=== PATIENT | female | born 1980 | race American Indian/Alaskan Native ===

== ENCOUNTER 2017-09-18 19:34 | Emergency (ER) | payer SELFPAY ==
[2017-09-18 21:07] LABS: Bilirubin,Urine NEG (Negative); Blood,Urine NEG (Negative); Color,Urine Yellow (Yellow); Mucus,Urine 2+ /HPF; Protein,Urine <15 mg/dL mg/dL (Negative); Urobilinogen,Urine < 2.0 mg/dL (<2.0)
[2017-09-18 21:08] LABS: Bacteria,Urine 1+ /HPF (Negative)
[2017-09-18 21:17] LABS: HCG Qualitative,Urine Negative (Negative)
--- NOTE | 2017-09-19 02:08 | Emergency Department Report ---
ED Female HPI - General Chief complaint: Urogenital-Female Stated complaint: VAGINAL DISCHARGE,HEADACHE,HIGH BLOOD PRESSURE Time Seen by Provider: 09/19/17 02:07 Source: patient Mode of arrival: Ambulatory Limitations: No Limitations - History of Present Illness Initial comments: Patient complaining of vaginal discharge and lower abdominal pain 5 days. She says she ran out of her hypertension medication and would like refill on medication. She is reported in pelvic pain at 8 out of 10 and cramping. Denies any vaginal bleeding. She has a history of uterine fibroids with blood transfusion in the past. Similar pain in the past. Reports some urinary burning and frequency but denies any urgency. Denies any back pain. Denies any nausea or vomiting. Pain is better at rest and worse with palpation and walking. When asked, patient unsure if she has STD but reports that partner does not have any symptoms. She also reports that she would like to get treated. We discussed different options. Patient does have a primary care but she wants [facility] REPA[facility] TECHNICIAN referral. MD Complaint: vaginal discharge, dysuria, pelvic pain, other (unsure of STD) Onset/Timin -: days(s) Location: suprapubic Radiation: non-radiating Severity: severe Severity scale (0 -10): 8 Quality: cramping Consistency: intermittent Improves with: other (rest) Worsens with: movement, other (palpation) Are you Now?: No Last Menstrual Period: 09/05/17 EDC: 06/12/18 Associated Symptoms: vaginal discharge, abdominal pain, dysuria. denies: vaginal bleeding, nausea/vomiting, fever/chills, headaches, loss of appetite, hematuria, rash, seizure, shortness of breath, syncope, weakness - Related Data Sexually active: Yes Previous Rx's Medication Instructions Recorded Last Taken Type Cephalexin [Keflex] 500 mg PO Q12HR 7 Days #14 cap 09/19/17 Unknown Rx Naproxen 500 mg PO Q12H PRN #12 tablet 09/19/17 Unknown Rx amLODIPine [Norvasc] 5 mg PO DAILY 30 Days #30 tablet 09/19/17 Unknown Rx MDD blood pressure Allergies Allergy/AdvReac Type Severity Reaction Status Date / Time No Known Allergies Allergy Unverified 10/25/15 20:00 ED Review of Systems ROS: Stated complaint: VAGINAL DISCHARGE,HEADACHE,HIGH BLOOD PRESSURE Other details as noted in HPI Constitutional: other (requested a refill on on Lodine for blood pressure). denies: chills, fever Eyes: denies: eye pain, eye discharge, vision change ENT: denies: throat pain Respiratory: denies: cough, shortness of breath, SOB with exertion, SOB at rest , stridor, wheezing Cardiovascular: denies: chest pain, palpitations, dyspnea on exertion, edema, syncope Gastrointestinal: abdominal pain. denies: nausea, vomiting, diarrhea, constipation, hematemesis, melena, hematochezia Genitourinary: dysuria, frequency, discharge. denies: urgency, hematuria, abnormal menses, dyspareunia Musculoskeletal: denies: back pain, joint swelling, arthralgia, myalgia Skin: denies: rash, lesions Neurological: denies: headache, weakness ED Past Medical Hx - Past Medical History Previous Medical History?: Yes Hx Hypertension: Yes Additional medical history: uterine fibroids, hx blood transfusions - Surgical History Past Surgical History?: Yes Additional Surgical History: Tonsils - Family History Family history: hypertension - Social History Smoking Status: Never Smoker Substance Use Type: None Other Social History: Single and lives with family - Medications Home Medications: Home Medications Medication Instructions Recorded Confirmed Last Taken Type Cephalexin [Keflex] 500 mg PO Q12HR 7 Days #14 cap 09/19/17 Unknown Rx Naproxen 500 mg PO Q12H PRN #12 tablet 09/19/17 Unknown Rx amLODIPine [Norvasc] 5 mg PO DAILY 30 Days #30 tablet 09/19/17 Unknown Rx MDD blood pressure ED Physical Exam - General Limitations: No Limitations General appearance: alert, in no apparent distress - Head Head exam: Present: atraumatic, normocephalic, normal inspection - Eye Eye exam: Present: normal appearance, PERRL, EOMI Pupils: Present: normal accommodation - ENT ENT exam: Present: normal exam, normal orophraynx, mucous membranes moist - Neck Neck exam: Present: normal inspection, full ROM, other (no C-spine tenderness). Absent: tenderness, lymphadenopathy - Respiratory Respiratory exam: Present: normal lung sounds bilaterally. Absent: respiratory distress, chest wall tenderness - Cardiovascular Cardiovascular Exam: Present: regular rate, normal rhythm, normal heart sounds. Absent: systolic murmur, diastolic murmur - GI/Abdominal GI/Abdominal exam: Present: soft, normal bowel sounds. Absent: distended, tenderness, guarding, rebound, rigid, organomegaly, mass, bruit, pulsatile mass , hernia - External exam: Present: normal external exam Speculum exam: Present: cervical discharge. Absent: erythema, vaginal discharge , vaginal bleeding, foreign body, tissue, laceration Bi-manual exam: Present: normal bi-manual exam. Absent: cervical motion tendernes, adnexal tenderness, adnexal mass, uterine enlargement, uterine tenderness - Extremities Exam Extremities exam: Present: normal inspection, full ROM, normal capillary refill , other (no clubbing, cyanosis or edema. +2 pulses all extremities and no neurovascular compromise). Absent: tenderness, pedal edema, joint swelling, calf tenderness - Back Exam Back exam: Present: normal inspection, full ROM, other (ambulates without any difficulties). Absent: tenderness, CVA tenderness (R), CVA tenderness (L), muscle spasm, paraspinal tenderness, vertebral tenderness, rash noted - Neurological Exam Neurological exam: Present: alert, oriented X3, normal gait - Psychiatric Psychiatric exam: Present: normal affect, normal mood - Skin Skin exam: Present: warm, dry, intact, normal color. Absent: rash ED Course Vital Signs 09/18/17 09/19/17 19:52 03:16 Temperature 97.8 F Pulse Rate 96 H 76 Respiratory 20 18 Rate Blood Pressure 151/97 Blood Pressure 151/91 148/89 [Right] O2 Sat by Pulse 100 100 Oximetry - Reevaluation(s) Reevaluation #1: 09/19/17 04:51 Patient given Rocephin 1 g IM to treat urinary tract infection and empirically for gonorrhea that she complain of vaginal discharge and returns for STD. He was also given azithromycin 1 g by mouth in emergency room without any adverse reaction. ED Medical Decision Making - Lab Data Lab Results 09/18/17 Range/Units 20:46 Urine Color Yellow (Yellow) Urine Turbidity Clear (Clear) Urine pH 5.0 (5.0-7.0) Ur Specific [place] 1.026 (1.003-1.030) Urine Protein <15 mg/dl (Negative) mg/dL Urine Glucose (UA) Neg (Negative) mg/dL Urine Ketones Neg (Negative) mg/dL Urine Blood Neg (Negative) Urine Nitrite Neg (Negative) Urine Bilirubin Neg (Negative) Urine Urobilinogen < 2.0 (<2.0) mg/dL Ur Leukocyte Esterase Sm (Negative) Urine WBC (Auto) 6.0 (0.0-6.0) /HPF Urine RBC (Auto) 6.0 (0.0-6.0) /HPF U Epithel Cells (Auto) 8.0 (0-13.0) /HPF Urine Bacteria (Auto) 1+ (Negative) /HPF Urine Mucus 2+ /HPF Urine HCG, Qual Negative (Negative) Urine culture sent and pending Wet prep was negative to cells, negative Trichomonas and negative yeast Gonorrhea and chlamydia pending - Medical Decision Making ED course: Diagnosis 1: Abdominal pain-resolved. Will be discharged home on anti-inflammatory 2-vaginal discharge :patient treated empirically and emergency room for gonorrhea and chlamydia. Specimen collected and sent. Wet prep negative for Trichomonas, yeast and bacterial vaginosis. Pelvic exam with vaginal discharge but cervix looks normal without any CMT 3: Urinary tract infection: UA with leukocyte Estrace and bacteria with patient complaining of urinary burning in with frequency. Patient given Rocephin 1 g which cover gonorrhea and also urinary tract infection and will be discharged home on Keflex. Urine culture collected and sent 4: Hypertension and request then medication refill for amlodipine: Will refill amlodipine and I discussed patient she needs to go to her primary care physician for management of her chronic hypertension Educated on safe sex, STDs and other diagnosis. Patient referred to [facility]PA[facility] TECHNICIAN to get Pap smear and she has not had one in a while. Educated to tell her partner that she had vaginal discharge and she was treated for gonorrhea and chlamydia and that they will need to be checked for STD Educated on medication and diagnosis and she voiced understanding. Vital signs are stable and she is afebrile prior to discharge. Patient given results on wet prep, urinalysis and I discussed with her that gonorrhea and chlamydia test is pending will be back and if she does not get a call within 5 days she can come to medical records department to get results and to bring her ID. Multiple follow-up given for primary care, taking [facility] and 3 m [facility] REPAIR TECHNIC[facility] doctor Maria Dolores Bolivar. Patient voiced understanding of need to follow-up. Patient discharged home in stable condition from emergency room with prescription for amlodipine, Keflex and naproxen. - Differential Diagnosis PID, , acute cystitis, STDs Critical care attestation.: If time is entered above; I have spent that time in minutes in the direct care of this critically ill patient, excluding procedure time. ED Disposition Clinical Impression: Concern about STD in female without diagnosis, Acute cystitis without hematuria , Vaginal discharge Abdominal pain Qualifiers: Abdominal location: lower abdomen, unspecified Qualified Code(s): R10.30 - Lower abdominal pain, unspecified Disposition: TO HOME OR SELFCARE Is pt being admited?: No Does the pt Need Aspirin: No Condition: Stable Instructions: Safe Sex (ED), Sexually Transmitted Diseases (ED), Dysuria (ED), Urinary Tract Infection in Women (ED), Heart Healthy Diet (ED), Hypertension (ED ) Additional Instructions: Please follow up with [facility] REPAIR TECHNICIAN doctor Daniel at [facility]. See referral given call and she is to schedule an appointment for visit for pelvic exam to include Pap smear. You were treated in emergency room today for gonorrhea and chlamydia and will need to follow-up with BICYCLE REPAIR TECHNICIAN or health department in 7-10 days for repeat testing. You can come to the medical record department and request results in 5 days for gonorrhea and chlamydia tests and if it is negative that he won't need to get rechecked You're also treated for urinary tract infection and will be placed on antibiotic which she needs to take twice daily for 7 days. He is practice safe sex. Urine negative for bacterial vaginosis, yeast infection and Trichomonas and ED today. Follow-up with your primary care is discussed he can also get repeat STD testing here. Need to Prescriptions: amLODIPine [Norvasc] 5 mg PO DAILY 30 Days #30 tablet MDD blood pressure Cephalexin [Keflex] 500 mg PO Q12HR 7 Days #14 cap Naproxen 500 mg PO Q12H PRN #12 tablet PRN Reason: abdominal cramps Referrals: PRIMARY MD PIPPA [Primary Care Provider] - 2-3 Days [facility] [Outside] - 2-3 Days JENNIFER AGUDELO MD [Staff Physician] - 2-3 Days [facility] [Outside] - 7-10 days Forms: Work/School Release Form(ED)
[2017-09-19] MEDS ORDERED: ROCEPHIN IM STA (02:37)
[2017-09-19] MEDS ORDERED: ZITHROMAX PO ONE (02:38)
[2017-09-19] MEDS ORDERED: XYLOCAINE 1% MPF 5 mL INFILTRATI ONE (02:38)
[2017-09-19 03:17] VITALS: BP 148/89
== END 2017-09-19 05:15 | disposition home or self-care (01) ==
LOC: ED 19:34
DX: N30.00 Acute cystitis without hematuria (principal); Z20.2 Contact with and (suspected) exposure to infections with a predominantly sexual mode of transmission; I10 Essential (primary) hypertension
CPT/HCPCS: 81001; 81025; 87086; 87210; 87591; 96372; 99283; J0696

== ENCOUNTER 2017-12-04 19:11 | Emergency (ER) | payer SELFPAY ==
[2017-12-04 23:58] LABS: Bilirubin,Urine NEG (Negative); Blood,Urine NEG (Negative); Color,Urine Yellow (Yellow); Mucus,Urine 1+ /HPF; Protein,Urine <15 mg/dL mg/dL (Negative); Urobilinogen,Urine < 2.0 mg/dL (<2.0)
[2017-12-05 00:01] LABS: HCG Qualitative,Urine Negative (Negative)
--- NOTE | 2017-12-05 00:19 | Emergency Department Report ---
ED Female HPI - General Chief complaint: Urogenital-Female Stated complaint: DISCHARGE/PAIN Time Seen by Provider: 12/05/17 00:12 Source: patient Mode of arrival: Ambulatory Limitations: No Limitations - History of Present Illness Initial comments: Patient 37-year-old Afro-[place] female who presents with dysuria 1 week other symptoms including frequency urgency . No vaginal discharge no back pain nausea vomiting last menstrual period MD Complaint: dysuria Onset/Timin -: week(s) Severity: moderate Severity scale (0 -10): 4 Quality: burning, other (stinging) Consistency: intermittent Improves with: none Worsens with: urination Are you Now?: No Last Menstrual Period: 11/28/17 EDC: 09/04/18 Associated Symptoms: dysuria. denies: vaginal discharge, vaginal bleeding, abdominal pain, nausea/vomiting, fever/chills, headaches, loss of appetite, hematuria, rash, shortness of breath, syncope, weakness - Related Data Sexually active: Yes Previous Rx's Medication Instructions Recorded Last Taken Type Cephalexin [Keflex] 500 mg PO Q12HR 7 Days #14 cap 09/19/17 Unknown Rx Naproxen 500 mg PO Q12H PRN #12 tablet 09/19/17 Unknown Rx amLODIPine [Norvasc] 5 mg PO DAILY 30 Days #30 tablet 09/19/17 Unknown Rx MDD blood pressure Ibuprofen 800 mg PO TID PRN #30 tablet 12/05/17 Unknown Rx Nitrofurantoin Monohyd/M-Cryst 100 mg PO BID #14 capsule 12/05/17 Unknown Rx [Macrobid 100 mg Capsule] Allergies Allergy/AdvReac Type Severity Reaction Status Date / Time No Known Allergies Allergy Unverified 10/25/15 20:00 ED Review of Systems ROS: Stated complaint: DISCHARGE/PAIN Other details as noted in HPI Constitutional: denies: chills, fever Eyes: denies: eye pain, eye discharge, vision change ENT: denies: ear pain, throat pain Respiratory: denies: cough, shortness of breath, wheezing Cardiovascular: denies: chest pain, palpitations Endocrine: no symptoms reported Gastrointestinal: denies: abdominal pain, nausea, diarrhea Genitourinary: urgency, dysuria, frequency, hematuria. denies: discharge Musculoskeletal: denies: back pain, joint swelling, arthralgia Skin: denies: rash, lesions Neurological: denies: headache, weakness, paresthesias Psychiatric: denies: anxiety, depression Hematological/Lymphatic: denies: easy bleeding, easy bruising ED Past Medical Hx - Past Medical History Previous Medical History?: Yes Hx Hypertension: Yes Additional medical history: uterine fibroids, hx blood transfusions - Surgical History Past Surgical History?: Yes Additional Surgical History: Tonsils - Social History Smoking Status: Never Smoker Substance Use Type: None - Medications Home Medications: Home Medications Medication Instructions Recorded Confirmed Last Taken Type Cephalexin [Keflex] 500 mg PO Q12HR 7 Days #14 cap 09/19/17 Unknown Rx Naproxen 500 mg PO Q12H PRN #12 tablet 09/19/17 Unknown Rx amLODIPine [Norvasc] 5 mg PO DAILY 30 Days #30 tablet 09/19/17 Unknown Rx MDD blood pressure Ibuprofen 800 mg PO TID PRN #30 tablet 12/05/17 Unknown Rx Nitrofurantoin Monohyd/M-Cryst 100 mg PO BID #14 capsule 12/05/17 Unknown Rx [Macrobid 100 mg Capsule] ED Physical Exam - General Limitations: No Limitations General appearance: alert, in no apparent distress - Head Head exam: Present: atraumatic, normocephalic - Eye Eye exam: Present: normal appearance - ENT ENT exam: Present: mucous membranes moist - Neck Neck exam: Present: normal inspection - Respiratory Respiratory exam: Present: normal lung sounds bilaterally. Absent: respiratory distress - Cardiovascular Cardiovascular Exam: Present: regular rate, normal rhythm. Absent: systolic murmur, diastolic murmur, rubs, gallop - GI/Abdominal GI/Abdominal exam: Present: soft, normal bowel sounds. Absent: distended, tenderness, guarding, rebound, rigid, organomegaly, mass, bruit, pulsatile mass , hernia - Rectal Rectal exam: Present: deferred - Extremities Exam Extremities exam: Present: normal inspection - Back Exam Back exam: Present: normal inspection, full ROM. Absent: tenderness, CVA tenderness (R), CVA tenderness (L), muscle spasm, paraspinal tenderness, vertebral tenderness, rash noted - Neurological Exam Neurological exam: Present: alert, oriented X3, CN II-XII intact, normal gait, reflexes normal. Absent: motor sensory deficit - Psychiatric Psychiatric exam: Present: normal affect, normal mood - Skin Skin exam: Present: warm, dry, intact, normal color. Absent: rash ED Course Vital Signs 12/04/17 19:38 Temperature 99.5 F Pulse Rate 88 Respiratory 18 Rate Blood Pressure 146/92 O2 Sat by Pulse 100 Oximetry ED Medical Decision Making - Lab Data Laboratory Tests 12/04/17 Unknown Urine Color Yellow Urine Turbidity Clear Urine pH 6.0 Ur Specific [place] 1.019 Urine Protein <15 mg/dl Urine Glucose (UA) Neg Urine Ketones Neg Urine Blood Neg Urine Nitrite Neg Urine Bilirubin Neg Urine Urobilinogen < 2.0 Ur Leukocyte Esterase Mod Urine WBC (Auto) 6.0 Urine RBC (Auto) 6.0 U Epithel Cells (Auto) 4.0 Urine Mucus 1+ Urine HCG, Qual Negative - Medical Decision Making this is a UTI, UA: mod luek, wbc, rbc, hcg: neg, given a vaginal discharge no sexual activity no back pain and nausea vomiting no CVA tenderness no hematuria which U Macrobid by mouth 7 days patient will follow up with PCP in 2 -3 days patient verbalizes agreement and understanding was able be DC'd home stable condition at this time Critical care attestation.: If time is entered above; I have spent that time in minutes in the direct care of this critically ill patient, excluding procedure time. ED Disposition Clinical Impression: UTI (urinary tract infection) Qualifiers: Urinary tract infection type: acute cystitis Hematuria presence: without hematuria Qualified Code(s): N30.00 - Acute cystitis without hematuria Disposition: DC-01 TO HOME OR SELFCARE Is pt being admited?: No Does the pt Need Aspirin: No Condition: Good Instructions: Urinary Tract Infection in Women (ED) Prescriptions: Ibuprofen 800 mg PO TID PRN #30 tablet PRN Reason: pain Nitrofurantoin Monohyd/M-Cryst [Macrobid 100 mg Capsule] 100 mg PO BID #14 capsule Referrals: PRIMARY CARE, [Primary Care Provider] - 3-5 Days Forms: Work/School Release Form(ED) Time of Disposition: 00:21
[2017-12-05 00:49] VITALS: BP 140/90
== END 2017-12-05 00:49 | disposition home or self-care (01) ==
LOC: ED 19:11
DX: N30.00 Acute cystitis without hematuria (principal); I10 Essential (primary) hypertension; Z90.89 Acquired absence of other organs
CPT/HCPCS: 81001; 81025; 87086; 99283

== ENCOUNTER 2018-01-13 13:12 | Emergency (ER) | payer OTHER ==
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
--- NOTE | 2018-01-13 15:08 | XRay Report ---
LUMBOSACRAL SPINE, 3 VIEWS: History: Back pain Findings: The vertebral bodies, disk spaces and posterior elements are intact. No compression deformity or malalignment. The SI joints are symmetric and unremarkable. Impression: 1. No evidence for acute injury to the lumbar spine.
--- NOTE | 2018-01-13 15:09 | XRay Report ---
CERVICAL SPINE, 3 views: History: Neck pain. Findings: The vertebral bodies, disk spaces, posterior elements and prevertebral soft tissues are unremarkable. The dens is intact. No acute fracture or malalignment is identified. Impression: 1. No evidence for acute injury to the cervical spine.
[2018-01-13 15:33] VITALS: BP 171/95
== END 2018-01-13 15:34 | disposition home or self-care (01) ==
LOC: ED 13:12
DX: M54.2 Cervicalgia (principal); M54.9 Dorsalgia, unspecified; V49.59XA Passenger injured in collision with other motor vehicles in traffic accident, initial encounter; X58.XXXA Exposure to other specified factors, initial encounter; Y93.89 Activity, other specified; Y92.89 Other specified places as the place of occurrence of the external cause; Y99.8 Other external cause status; I10 Essential (primary) hypertension
CPT/HCPCS: 72040; 72100

== ENCOUNTER 2018-08-06 08:14 | Emergency (ER) | payer OTHER ==
[2018-08-06] MEDS ORDERED: ROBITUSSIN PO ONE (10:05)
--- NOTE | 2018-08-06 10:10 | Emergency Department Report ---
ED ENT HPI - General Chief complaint: Sore Throat Stated complaint: COLD/SORE THROAT Time Seen by Provider: 08/06/18 09:40 Source: patient Mode of arrival: Ambulatory Limitations: No Limitations - History of Present Illness Initial comments: This is a 38-year-old female who presents to ED complaining of 5 days worth of sore throat and cough.. 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 Patient denies fever, difficulty breathing, difficulty eating or swallowing. Patient st ates she's been taking [id number] Tylenol and NyQuil with no relief. MD complaint: sore throat - Related Data Previous Rx's Medication Instructions Recorded Last Taken Type Naproxen 500 mg PO Q12H PRN #12 tablet 09/19/17 Unknown Rx cephALEXin [Keflex] 500 mg PO Q12HR 7 Days #14 cap 09/19/17 Unknown Rx Nitrofurantoin Monohyd/M-Cryst 100 mg PO BID #14 capsule 12/05/17 Unknown Rx [Macrobid 100 mg Capsule] Cyclobenzaprine [Flexeril] 10 mg PO TID PRN #20 tablet 01/13/18 Unknown Rx Naproxen [Naprosyn] 500 mg PO BID #14 tablet 01/13/18 Unknown Rx Benzonatate [Tessalon Perles] 100 mg PO Q8HR #30 capsule 08/06/18 Unknown Rx Ibuprofen 800 mg PO TID PRN #30 tablet 08/06/18 Unknown Rx Loratadine [Claritin] 10 mg PO DAILY #30 tablet 08/06/18 Unknown Rx amLODIPine [Norvasc] 5 mg PO DAILY 30 Days #30 tablet 08/06/18 Unknown Rx MDD blood pressure Allergies Allergy/AdvReac Type Severity Reaction Status Date / Time No Known Allergies Allergy Verified 08/06/18 08:17 ED Dental HPI - General Chief complaint: Sore Throat Stated complaint: COLD/SORE THROAT Time Seen by Provider: 08/06/18 09:40 Source: patient Mode of arrival: Ambulatory Limitations: No Limitations - Related Data Previous Rx's Medication Instructions Recorded Last Taken Type Naproxen 500 mg PO Q12H PRN #12 tablet 09/19/17 Unknown Rx cephALEXin [Keflex] 500 mg PO Q12HR 7 Days #14 cap 09/19/17 Unknown Rx Nitrofurantoin Monohyd/M-Cryst 100 mg PO BID #14 capsule 12/05/17 Unknown Rx [Macrobid 100 mg Capsule] Cyclobenzaprine [Flexeril] 10 mg PO TID PRN #20 tablet 01/13/18 Unknown Rx Naproxen [Naprosyn] 500 mg PO BID #14 tablet 01/13/18 Unknown Rx Benzonatate [Tessalon Perles] 100 mg PO Q8HR #30 capsule 08/06/18 Unknown Rx Ibuprofen 800 mg PO TID PRN #30 tablet 08/06/18 Unknown Rx Loratadine [Claritin] 10 mg PO DAILY #30 tablet 08/06/18 Unknown Rx amLODIPine [Norvasc] 5 mg PO DAILY 30 Days #30 tablet 08/06/18 Unknown Rx MDD blood pressure Allergies Allergy/AdvReac Type Severity Reaction Status Date / Time No Known Allergies Allergy Verified 08/06/18 08:17 ED Review of Systems ROS: Stated complaint: COLD/SORE THROAT Other details as noted in HPI Comment: All other systems reviewed and negative ED Past Medical Hx - Past Medical History Hx Hypertension: Yes Additional medical history: uterine fibroids, hx blood transfusions - Surgical History Additional Surgical History: Tonsils - Social History Smoking Status: Never Smoker Substance Use Type: None - Medications Home Medications: Home Medications Medication Instructions Recorded Confirmed Last Taken Type Naproxen 500 mg PO Q12H PRN #12 tablet 09/19/17 Unknown Rx cephALEXin [Keflex] 500 mg PO Q12HR 7 Days #14 cap 09/19/17 Unknown Rx Nitrofurantoin Monohyd/M-Cryst 100 mg PO BID #14 capsule 12/05/17 Unknown Rx [Macrobid 100 mg Capsule] Cyclobenzaprine [Flexeril] 10 mg PO TID PRN #20 tablet 01/13/18 Unknown Rx Naproxen [Naprosyn] 500 mg PO BID #14 tablet 01/13/18 Unknown Rx Benzonatate [Tessalon Perles] 100 mg PO Q8HR #30 capsule 08/06/18 Unknown Rx Ibuprofen 800 mg PO TID PRN #30 tablet 08/06/18 Unknown Rx Loratadine [Claritin] 10 mg PO DAILY #30 tablet 08/06/18 Unknown Rx amLODIPine [Norvasc] 5 mg PO DAILY 30 Days #30 tablet 08/06/18 Unknown Rx MDD blood pressure ED Physical Exam - General Limitations: No Limitations General appearance: alert, in no apparent distress - Head Head exam: Present: atraumatic, normocephalic - Eye Eye exam: Present: normal appearance - ENT ENT exam: Present: mucous membranes moist - Neck Neck exam: Present: normal inspection, full ROM. Absent: tenderness, lymphadenopathy - Respiratory Respiratory exam: Present: normal lung sounds bilaterally. Absent: respiratory distress, wheezes, rales, chest wall tenderness, accessory muscle use - Cardiovascular Cardiovascular Exam: Present: regular rate, normal rhythm. Absent: systolic murmur, diastolic murmur, rubs, gallop - GI/Abdominal GI/Abdominal exam: Present: soft, normal bowel sounds - Extremities Exam Extremities exam: Present: normal inspection - Back Exam Back exam: Present: normal inspection - Neurological Exam Neurological exam: Present: alert, oriented X3 - Psychiatric Psychiatric exam: Present: normal affect, normal mood - Skin Skin exam: Present: warm, dry, intact, normal color. Absent: rash ED Course Vital Signs 08/06/18 08:19 Temperature 98.5 F Pulse Rate 94 H Respiratory 18 Rate Blood Pressure 173/107 O2 Sat by Pulse 100 Oximetry ED Medical Decision Making - Medical Decision Making 38-year-old female presents with viral syndrome. Patient does say she is concerned about her blood pressure but she states that she is to be on amlodipine. Amlodipine 10 mg administered in the ED Patient is speaking in clear sentences. Patient will likely a referral primary care physician to continue blood pressure management. Final signs are normal patient is in no acute distress. Critical care attestation.: If time is entered above; I have spent that time in minutes in the direct care of this critically ill patient, excluding procedure time. ED Disposition Clinical Impression: Viral syndrome, Hypertension Disposition: DC-01 TO HOME OR SELFCARE Is pt being admited?: No Does the pt Need Aspirin: No Condition: Stable Instructions: Hypertension (ED), Cold Symptoms (ED) Additional Instructions: Make sure to follow up with the primary care physician as discussed. Take all your medications as you've been prescribed. If you have any worsening symptoms or develop new symptoms please return to ED immediately. Prescriptions: Loratadine [Claritin] 10 mg PO DAILY #30 tablet Ibuprofen 800 mg PO TID PRN #30 tablet PRN Reason: pain amLODIPine [Norvasc] 5 mg PO DAILY 30 Days #30 tablet MDD blood pressure Benzonatate [Tessalon Perllina] 100 mg PO Q8HR #30 capsule Referrals: LUCIANA REIS MD [Referring] - 3-5 Days [facility] [Provider Group] - 3-5 Days [facility] [Outside] - 3-5 Days Forms: Work/School Release Form(ED) Time of Disposition: 10:47
[2018-08-06] MEDS ORDERED: NORVASC PO ONE (10:49)
[2018-08-06 10:55] VITALS: BP 163/98
== END 2018-08-06 11:05 | disposition home or self-care (01) ==
LOC: ED 08:14
DX: B34.9 Viral infection, unspecified (principal); I10 Essential (primary) hypertension; J02.9 Acute pharyngitis, unspecified
CPT/HCPCS: 99282

== ENCOUNTER 2018-08-12 12:06 | Emergency (ER) | payer OTHER ==
[2018-08-12 13:14] VITALS: BP 152/95
--- NOTE | 2018-08-12 15:08 | XRay Report ---
XRAY CHEST TWO VIEWS: 08/12/18 12:06:00 CLINICAL: Productive cough. COMPARISON: None FINDINGS: Normal heart and pulmonary vasculature. The lungs are normally expanded and clear.Dextroscoliosis but otherwise normal bones. The soft tissues. IMPRESSION: No acute cardiopulmonary process.
--- NOTE | 2018-08-12 15:19 | Emergency Department Report ---
ED Medical Clearance HPI - General Chief complaint: Medical Clearance Stated complaint: COLD AND LESION Time Seen by Provider: 08/12/18 15:16 Source: patient Mode of arrival: Ambulatory - History of Present Illness Initial comments: Pt is a 38 yo female who presents to the ED with c/o medical clearance for her job. The patient states she was diagnosed with chicken pox and states that the rash has resolved. The patient states it crusted over and has not had any further blistering. The patient states that she has had a cough for about 10 days. states she has mucus production. States she has rhinorrhea. She denies any CP or SOB. She states she has a PMHx of HTN and states she is on amlodipine. Pt was evaluated in the ED with these c/o and was diagnosed with viral syndrome and given claritin and tessalon perles. Home medications: Previous Rx's Medication Instructions Recorded Last Taken Type Naproxen 500 mg PO Q12H PRN #12 tablet 09/19/17 Unknown Rx Naproxen [Naprosyn TAB] 500 mg PO BID #14 tablet 01/13/18 Unknown Rx Benzonatate [Tessalon Perles] 100 mg PO Q8HR #30 capsule 08/06/18 Unknown Rx Loratadine [Claritin] 10 mg PO DAILY #30 tablet 08/06/18 Unknown Rx amLODIPine [Norvasc] 5 mg PO DAILY 30 Days #30 tablet 08/06/18 Unknown Rx MDD blood pressure Fluticasone [Flonase] 1 spray NS QDAY #1 bottle 08/12/18 Unknown Rx Prednisone [predniSONE 10 mg 10 mg PO .TAPER 6 Days #1 tab.ds.pk 08/12/18 Unknown Rx (6-Day Pack, 21 Tabs)] Allergies/Adverse reactions: Allergies Allergy/AdvReac Type Severity Reaction Status Date / Time No Known Allergies Allergy Verified 08/06/18 08:17 ED Review of Systems ROS: Stated complaint: COLD AND LESION Other details as noted in HPI Comment: All other systems reviewed and negative ED Past Medical Hx - Past Medical History Previous Medical History?: Yes Hx Hypertension: Yes Additional medical history: uterine fibroids, hx blood transfusions - Surgical History Past Surgical History?: Yes Additional Surgical History: Tonsils - Social History Smoking Status: Never Smoker Substance Use Type: None - Medications Home Medications: Home Medications Medication Instructions Recorded Confirmed Last Taken Type Naproxen 500 mg PO Q12H PRN #12 tablet 09/19/17 Unknown Rx Naproxen [Naprosyn TAB] 500 mg PO BID #14 tablet 01/13/18 Unknown Rx Benzonatate [Tessalon Perles] 100 mg PO Q8HR #30 capsule 08/06/18 Unknown Rx Loratadine [Claritin] 10 mg PO DAILY #30 tablet 08/06/18 Unknown Rx amLODIPine [Norvasc] 5 mg PO DAILY 30 Days #30 tablet 08/06/18 Unknown Rx MDD blood pressure Fluticasone [Flonase] 1 spray NS QDAY #1 bottle 08/12/18 Unknown Rx Prednisone [predniSONE 10 mg 10 mg PO .TAPER 6 Days #1 tab.ds.pk 08/12/18 Unknown Rx (6-Day Pack, 21 Tabs)] ED Physical Exam - General Limitations: No Limitations General appearance: alert, in no apparent distress - Head Head exam: Present: atraumatic, normocephalic - Eye Eye exam: Present: normal appearance - ENT ENT exam: Present: normal orophraynx, mucous membranes moist - Respiratory Respiratory exam: Present: normal lung sounds bilaterally. Absent: respiratory distress, wheezes, rales, rhonchi, stridor, chest wall tenderness, accessory muscle use, decreased breath sounds, prolonged expiratory - Cardiovascular Cardiovascular Exam: Present: regular rate, normal rhythm, normal heart sounds. Absent: systolic murmur, diastolic murmur, rubs, gallop - Neurological Exam Neurological exam: Present: alert, oriented X3 - Psychiatric Psychiatric exam: Present: normal affect, normal mood - Skin Skin exam: Present: warm, dry, other (patient has healed, crusted over lesions on the face and rest of the body ) ED Course Vital Signs 08/12/18 13:12 Temperature 98.2 F Pulse Rate 89 Respiratory 18 Rate Blood Pressure 152/95 O2 Sat by Pulse 100 Oximetry ED Medical Decision Making - Radiology Data Radiology results: report reviewed XRAY CHEST TWO VIEWS: 08/12/18 12:06:00 CLINICAL: Productive cough. COMPARISON: None FINDINGS: Normal heart and pulmonary vasculature. The lungs are normally expanded and clear.Dextroscoliosis but otherwise normal bones. The soft tissues. IMPRESSION: No acute cardiopulmonary process. Transcribed By: REF Dictated By: IRA RAZO MD Electronically Authenticated By: IRA RAZO MD Signed Date/Time: 08/12/18 2685 - Medical Decision Making Pt is a 38 yo female who presents to the ED with c/o medical clearance for her job. The patient states she was diagnosed with chicken pox and states that the rash has resolved. The patient states it crusted over and has not had any further blistering. The patient states that she has had a cough for about 10 days. states she has mucus production. States she has rhinorrhea. She denies any CP or SOB. She states she has a PMHx of HTN and states she is on amlodipine. Pt was evaluated in the ED with these c/o and was diagnosed with viral syndrome and given claritin and tessalon perles. VSS. lung sounds are clear bilaterally. CXR with no acute process. Appears to have allergic rhinitis on examination, will give pt flonase. Skin examination shows healed, crusted over lesions from prior chicken pox. Advised pt that we could give her a return to work excuse but could not give her a form stating that she was not contagious. Discussed with pt she would need to see a PCP for that complaint. Advised pt to take all medication as prescribed. Follow up with PCP in the next 2-3 days. Return to the ED for any new or worsening symptoms. ED Disposition Clinical Impression: Viral syndrome Hypertension Qualifiers: Hypertension type: essential hypertension Qualified Code(s): I10 - Essential (primary) hypertension Chicken pox Qualifiers: Varicella complications: without complication Qualified Code(s): B01.9 - Varicella without complication Disposition: DC- TO HOME OR SELFCARE Is pt being admited?: No Does the pt Need Aspirin: No Condition: Stable Instructions: Upper Respiratory Infection (ED), Hypertension (ED) Additional Instructions: Please follow up with a primary care doctor in the next 2-3 days. please discuss with your doctor the elevation in your blood pressure and further blood pressure evaluation and management. Please take medication as prescribed. Return to the emergency room for any new or worsening symptoms. Prescriptions: Fluticasone [Flonase] 1 spray NS QDAY #1 bottle Prednisone [predniSONE 10 mg (6-Day Pack, 21 Tabs)] 10 mg PO .TAPER 6 Days #1 tab.ds.pk Referrals: KIA CR MD [Primary Care Provider] - 2-3 Days Forms: Work/School Release Form(ED) Time of Disposition: 15:25 Print Language: VINCENTIAN
== END 2018-08-12 15:40 | disposition home or self-care (01) ==
LOC: ED 12:06
DX: B34.9 Viral infection, unspecified (principal); B01.9 Varicella without complication; I10 Essential (primary) hypertension; D64.9 Anemia, unspecified; Z90.89 Acquired absence of other organs
CPT/HCPCS: 71046

== ENCOUNTER 2021-11-16 07:38 | Emergency (ER) | payer SELFPAY ==
[2021-11-16] MEDS ORDERED: METOCLOPRAMIDE 10 MG/2 ML INJ IV ONE (08:39)
[2021-11-16] MEDS ORDERED: diphenhydrAMINE 50 MG/ML VIAL IV ONE (08:39)
[2021-11-16] MEDS ORDERED: hydrALAZINE 20 MG/1 ML INJ IV ONE (08:39)
[2021-11-16] MEDS ORDERED: diphenhydrAMINE 25 MG/10 ML ORAL LIQUID PO ONE (09:31)
[2021-11-16] MEDS ORDERED: METOCLOPRAMIDE 10 MG TAB PO ONE (09:31)
[2021-11-16] MEDS ORDERED: cloNIDine 0.2 MG TAB PO ONE (09:31)
[2021-11-16 09:34] LABS: Basophils % (Auto) 0.6 % (0.0-1.8); Eosinophils # (Auto) 0.1 K/mm3 (0.0-0.4); Eosinophils % (Auto) 2.3 % (0.0-4.3); Hematocrit 42.4 % (30.3-42.9); Hemoglobin 14.1 gm/dl (10.1-14.3); Lymphocytes # (Auto) 1.1 K/mm3 (1.2-5.4); Lymphocytes % (Auto) 26.8 % (13.4-35.0); Mean Corpuscular HGB Conc 33 % (30-34); Mean Corpuscular Volume 85 fl (79-97); Monocytes # (Auto) 0.3 K/mm3 (0.0-0.8); Monocytes % (Auto) 6.8 % (0.0-7.3); Platelet Count 141 K/mm3 (140-440); Red Blood Count 5.01 M/mm3 (3.65-5.03); Red Cell Distribution Width 14.7 % (13.2-15.2)
[2021-11-16 10:03] LABS: Alanine Aminotransferase 23 units/L (7-56); Albumin 4.5 g/dL (3.9-5); Blood Urea Nitrogen 10 mg/dL (7-17); Calcium 9.5 mg/dL (8.4-10.2); Hemolysis Index 8
[2021-11-16 10:05] LABS: BUN/Creatinine Ratio 20
--- NOTE | 2021-11-16 10:14 | Cat Scan Report ---
NONENHANCED CT SCAN OF THE HEAD: INDICATION / CLINICAL INFORMATION: 41 years Female; headache with HTN. TECHNIQUE: Routine CT head without contrast. All CT scans at this location are performed using CT dos e reduction for ALARA by means of automated exposure control. COMPARISON: None. FINDINGS: BRAIN / INTRACRANIAL CONTENTS: No acute hemorrhage, mass effect, midline shift, hydrocephalus, or acu te, large territorial infarct. No chronic infarct or focal atrophy. Normal brain volume and ventricul ar/sulcal size for age. No significant white matter abnormality. CRANIOCERVICAL JUNCTION: No significant abnormality. ORBITS: No significant abnormality of visualized orbits. SINUSES / MASTOIDS: No significant abnormality of the visualized paranasal sinuses or mastoid air lynda ls. ADDITIONAL FINDINGS: None. IMPRESSION: No focal parenchymal lesion Signer Name: Marcela Pritchett MD Signed: 11/16/2021 10:09 AM Workstation Name: [employer]
[2021-11-16 10:41] VITALS: BP 148/96
--- NOTE | 2021-11-16 10:53 | Emergency Department Report ---
ED General Adult HPI - General Chief complaint: High BP Stated complaint: HIGH BLOOD PRESSURE Time Seen by Provider: 11/16/21 08:39 Source: patient Mode of arrival: Ambulatory Limitations: No Limitations - History of Present Illness Initial comments: This is a 41-year-old female nontoxic, well nourished in appearance, no acute signs of distress presents to the ED with c/o of acute headache. Patient also stated is out of her blood pressure medication which she has not been taking for several days which was Norvasc 10 mg. Patient describes headache as diffuse with level of 8 out of 10. Patient denies thunderclap headache. Patient denies any radiation of pain. Patient denies any head trauma. Patient denies any visual changes. Patient denies worse headache. Patient stated that darkness makes headache better and bright lights make the headache worse. Patient denies any numbness, tingling, fever, chills, nausea, vomiting, chest pain, shortness of breath, stiff neck. Patient denies facial drooping or one sided weakness. Patient denies any radiation of pain. Patient denies any allergies. -: days(s) Location: head Radiation: non-radiation Severity scale (0 -10): 8 Quality: aching Consistency: constant Improves with: none Worsens with: none Associated Symptoms: denies other symptoms. denies: confusion, chest pain, cough, diaphoresis, fever/chills, headaches, loss of appetite, malaise, nausea/vomiting, rash, seizure, shortness of breath, syncope, weakness Treatments Prior to Arrival: none - Related Data Previous Rx's Medication Instructions Recorded Last Taken Type Naproxen 500 mg PO Q12H PRN #12 tablet 09/19/17 Unknown Rx Naproxen [Naprosyn TAB] 500 mg PO BID #14 tablet 01/13/18 Unknown Rx Benzonatate [Tessalon Perles] 100 mg PO Q8HR #30 capsule 08/06/18 Unknown Rx Loratadine (Nf) [Claritin (Nf)] 10 mg PO DAILY #30 tablet 08/06/18 Unknown Rx amLODIPine 5 mg PO DAILY 30 Days #30 tablet 08/06/18 Unknown Rx MDD blood pressure Fluticasone [Flonase] 1 spray NS QDAY #1 bottle 08/12/18 Unknown Rx Prednisone [predniSONE 10 mg 10 mg PO .TAPER 6 Days #1 tab.ds.pk 08/12/18 Unknown Rx (6-Day Pack, 21 Tabs)] amLODIPine 10 mg PO DAILY #30 tab 11/16/21 Unknown Rx Allergies Allergy/AdvReac Type Severity Reaction Status Date / Time No Known Allergies Allergy Verified 08/06/18 08:17 ED Review of Systems ROS: Stated complaint: HIGH BLOOD PRESSURE Other details as noted in HPI Comment: All other systems reviewed and negative Constitutional: denies: chills, fever Eyes: denies: eye pain, eye discharge, vision change ENT: denies: ear pain, throat pain Respiratory: denies: cough, shortness of breath, wheezing Cardiovascular: denies: chest pain, palpitations Endocrine: no symptoms reported Gastrointestinal: denies: abdominal pain, nausea, diarrhea Genitourinary: denies: urgency, dysuria, discharge Musculoskeletal: denies: back pain, joint swelling, arthralgia Skin: denies: rash, lesions Neurological: headache. denies: weakness, paresthesias Psychiatric: denies: anxiety, depression Hematological/Lymphatic: denies: easy bleeding, easy bruising ED Past Medical Hx - Past Medical History Hx Hypertension: Yes Additional medical history: uterine fibroids, hx blood transfusions - Surgical History Additional Surgical History: Tonsils - Social History Smoking Status: Never Smoker - Medications Home Medications: Home Medications Medication Instructions Recorded Confirmed Last Taken Type Naproxen 500 mg PO Q12H PRN #12 tablet 09/19/17 Unknown Rx Naproxen [Naprosyn TAB] 500 mg PO BID #14 tablet 01/13/18 Unknown Rx Benzonatate [Tessalon Perles] 100 mg PO Q8HR #30 capsule 08/06/18 Unknown Rx Loratadine (Nf) [Claritin (Nf)] 10 mg PO DAILY #30 tablet 08/06/18 Unknown Rx amLODIPine 5 mg PO DAILY 30 Days #30 tablet 08/06/18 Unknown Rx MDD blood pressure Fluticasone [Flonase] 1 spray NS QDAY #1 bottle 08/12/18 Unknown Rx Prednisone [predniSONE 10 mg 10 mg PO .TAPER 6 Days #1 tab.ds.pk 08/12/18 Unknown Rx (6-Day Pack, 21 Tabs)] amLODIPine 10 mg PO DAILY #30 tab 11/16/21 Unknown Rx ED Physical Exam - General Limitations: No Limitations General appearance: alert, in no apparent distress - Head Head exam: Present: atraumatic, normocephalic - Eye Eye exam: Present: normal appearance, PERRL, EOMI Pupils: Present: normal accommodation - Neck Neck exam: Present: normal inspection, full ROM. Absent: lymphadenopathy - Respiratory Respiratory exam: Present: normal lung sounds bilaterally. Absent: respiratory distress, wheezes, rales, rhonchi, chest wall tenderness, accessory muscle use, decreased breath sounds, prolonged expiratory - Cardiovascular Cardiovascular Exam: Present: regular rate, normal rhythm, normal heart sounds. Absent: bradycardia, tachycardia, irregular rhythm, systolic murmur, diastolic murmur, rubs, gallop - GI/Abdominal GI/Abdominal exam: Present: soft. Absent: distended, tenderness - Extremities Exam Extremities exam: Present: full ROM - Back Exam Back exam: Present: full ROM - Neurological Exam Neurological exam: Present: alert, oriented X3, normal gait - Expanded Neurological Exam Expanded Patient oriented to: Present: person, place, time Cranial nerves: EOM's Intact: Normal, Facial Sensation: Normal Cerebellar function: Finger to Nose: Normal Upper motor neuron: Pronator Drift: Normal, Sensory Extinction: Normal Motor strength exam: RUE: 5, LUE: 5, RLE: 5, LLE: 5 Best Eye Response ([place]): (4) open spontaneously Best Motor Response (Lakshmi): (6) obeys commands Best Verbal Response (Lakshmi): (5) oriented Lakshmi Total: 15 - Psychiatric Psychiatric exam: Present: normal affect, normal mood - Skin Skin exam: Present: warm, dry, intact, normal color. Absent: rash ED Course Vital Signs 11/16/21 11/16/21 11/16/21 07:46 09:36 10:40 Temperature 98.2 F 98.7 F Pulse Rate 91 H 78 68 Respiratory 14 20 Rate Blood Pressure 204/125 200/99 Blood Pressure 148/96 [Right] O2 Sat by Pulse 100 98 Oximetry - Reevaluation(s) Reevaluation #1: 11/16/21 10:51 Patient is speaking in full sentences with no signs of distress noted. ED Medical Decision Making - Lab Data Result diagrams: 11/16/21 09:03 11/16/21 09:03 Lab Results 11/16/21 11/16/21 Range/Units 09:03 09:03 WBC 4.0 L (4.5-11.0) K/mm3 RBC 5.01 (3.65-5.03) M/mm3 Hgb 14.1 (10.1-14.3) gm/dl Hct 42.4 (30.3-42.9) % MCV 85 (79-97) fl MCH 28 (28-32) pg MCHC 33 (30-34) % RDW 14.7 (13.2-15.2) % Plt Count 141 (140-440) K/mm3 Lymph % (Auto) 26.8 (13.4-35.0) % [place] % (Auto) 6.8 (0.0-7.3) % Eos % (Auto) 2.3 (0.0-4.3) % Baso % (Auto) 0.6 (0.0-1.8) % Lymph # (Auto) 1.1 L (1.2-5.4) K/mm3 [place] # (Auto) 0.3 (0.0-0.8) K/mm3 Eos # (Auto) 0.1 (0.0-0.4) K/mm3 Baso # (Auto) 0.0 (0.0-0.1) K/mm3 Seg Neutrophils % 63.5 (40.0-70.0) % Seg Neutrophils # 2.6 (1.8-7.7) K/mm3 Sodium 137 (137-145) mmol/L Potassium 4.5 (3.6-5.0) mmol/L Chloride 105.2 (98-107) mmol/L Carbon Dioxide 22 (22-30) mmol/L Anion Gap 14 mmol/L BUN 10 (7-17) mg/dL Creatinine 0.5 L (0.6-1.2) mg/dL Estimated GFR > 60 ml/min BUN/Creatinine Ratio 20 % Glucose 88 (65-100) mg/dL Calcium 9.5 (8.4-10.2) mg/dL Total Bilirubin 0.50 (0.1-1.2) mg/dL AST 21 (5-40) units/L ALT 23 (7-56) units/L Alkaline Phosphatase 93 (35-129) units/L Total Protein 7.8 (6.3-8.2) g/dL Albumin 4.5 (3.9-5) g/dL Albumin/Globulin Ratio 1.4 % - EKG Data 11/16/21 10:55 Normal sinus rhythm at 76 bpm. Left ventricle hypertrophy. No significant ST or T wave abnormalities. Reviewed and signed by . - Radiology Data [facility] [address] [place] [address] Cat Scan Report Signed Patient: JENNY MARIN MR#: [id number] : 1980 Acct:[id number] Age/Sex: 41 / F ADM Date: 11/16/21 Loc: ED Attending Dr: Ordering Physician: JADA MCCLURE NP Date of Service: 11/16/21 Procedure(s): CT head/brain wo con Accession Number(s): [id number] cc: JADA MCCLURE NP NONENHANCED CT SCAN OF THE HEAD: INDICATION / CLINICAL INFORMATION: 41 years Female; headache with HTN. TECHNIQUE: Routine CT head without contrast. All CT scans at this location are performed using CT dose reduction for ALARA by means of automated exposure control. COMPARISON: None. FINDINGS: BRAIN / INTRACRANIAL CONTENTS: No acute hemorrhage, mass effect, midline shift, hydrocephalus, or acute, large territorial infarct. No chronic infarct or focal atrophy. Normal brain volume and ventricular/sulcal size for age. No significant white matter abnormality. CRANIOCERVICAL JUNCTION: No significant abnormality. ORBITS: No significant abnormality of visualized orbits. SINUSES / MASTOIDS: No significant abnormality of the visualized paranasal sinuses or mastoid air cells. ADDITIONAL FINDINGS: None. IMPRESSION: No focal parenchymal lesion Signer Name: Marcela Pritchett MD Signed: 11/16/2021 10:09 AM Workstation Name: [id number] Transcribed By: BS Dictated By: Marcela Escobar MD Electronically Authenticated By: Marcela Escobar MD Signed Date/Time: 11/16/21 1009 DD/ 1008 TD/TT: - Medical Decision Making This is a 41-year-old female that presents with headache and hypertension. Pa tient is stable and was examined by me. Patient is neurologically stable. There is no stiff neck or neck pain. Vital signs are stable. Patient is afebrile. Patient is notified of the lab results and CT results with no questions noted by the patient. Patient received Benadryl, Reglan, and Catap res. Patient was instructed not to operate any machinery after discharged due to drowsiness of Benadryl. Patient stated that a family member will drive patient home. Patient is discharged with patient's blood pressure medication refill of Norvasc 10 mg. Patient was referred to Follow-up with a primary care doctor in 3-5 days or if symptoms worsen and continue return to emergency room as soon as possible. At time of discharge, the patient does not seem toxic or ill in appearance. No acute signs of distress noted. Patient agrees to discharge treatment plan of care. No further questions noted by the patient. Critical care attestation.: If time is entered above; I have spent that time in minutes in the direct care of this critically ill patient, excluding procedure time. ED Disposition Clinical Impression: Medication refill, Noncompliance with medication regimen Headache Qualifiers: Headache type: unspecified Headache chronicity pattern: episodic headache Intractability: not intractable Qualified Code(s): R51.9 - Headache, unspecified Hypertension Qualifiers: Hypertension type: unspecified Qualified Code(s): I10 - Essential (primary) hypertension Disposition: 01 HOME / SELF CARE / HOMELESS Is pt being admited?: No Does the pt Need Aspirin: No Condition: Stable Instructions: Hypertension (ED) Additional Instructions: Follow-up with a primary care doctor in 3-5 days or if symptoms worsen and continue return to emergency room as soon as possible. Prescriptions: amLODIPine 10 mg PO DAILY #30 tab Referrals: CELESTE DAS MD [Primary Care Provider] - 3-5 Days CHRISTINE FINLEY MD [Staff Physician] - 3-5 Days Time of Disposition: 10:54
--- NOTE | 2021-11-17 10:01 | Electrocardiograph Report ---
[facility] Test Date: 2021-11-16 Test Time: 07:53:52 Pat Name: JENNY MARIN Department: Room: Gender: F Health Safety Engineer: DARCI : 1980 Requested By: DARYL TRINH Order Number: [id number] Reading MD: Mp Abdul Measurements Intervals [place] Rate: 76 P: 41 WA: 167 QRS: 41 QRSD: 96 T: 47 QT: 394 QTc: 445 Interpretive Statements Sinus rhythm Consider left ventricular hypertrophy No previous ECG available for comparison Electronically Signed On 11-17-2021 10:01:24 EDT by Mp Abdul
== END 2021-11-16 10:59 | disposition home or self-care (01) ==
LOC: ED 07:38
DX: I10 Essential (primary) hypertension (principal); R51.9 Headache, unspecified; Z76.0 Encounter for issue of repeat prescription; Z91.14 Patient's other noncompliance with medication regimen; D25.9 Leiomyoma of uterus, unspecified; Z98.890 Other specified postprocedural states
CPT/HCPCS: 36415; 70450; 80053; 85025; 93005; 99284; J0360; Q0163; J1200; J2765

== ENCOUNTER 2021-12-25 03:58 | Emergency (ER) | payer SELFPAY ==
[2021-12-25 04:24] VITALS: BP 142/96
[2021-12-25 09:31] LABS: Mucus,Urine 2+ /HPF
[2021-12-25 09:45] LABS: Color,Urine Yellow (Yellow)
--- NOTE | 2021-12-25 09:53 | Emergency Department Report ---
ED General Adult HPI - General Chief complaint: Weakness Stated complaint: HEADACHE/FATIGUE/VAGINAL DISCHARGE/HBP Time Seen by Provider: 12/25/21 08:07 Source: patient Mode of arrival: Ambulatory Limitations: No Limitations - History of Present Illness Initial comments: 41 YO COMES TO ER WITH DYSURIA AND REQUESTING BP MED REFILL. NO CP. NO SOB. NO FEVER/CHILLS. NO BACK PAIN. NO N/V/D. NO CVA TENDERNESS. AMBULATORY AND NEURO INTACT ON ARRIVAL TO FT -: Gradual, days(s) Consistency: intermittent Improves with: none Worsens with: none Associated Symptoms: denies other symptoms. denies: confusion, chest pain, cough, diaphoresis, fever/chills, headaches, loss of appetite, malaise, nausea/vomiting, rash, seizure, shortness of breath, syncope, weakness - Related Data Previous Rx's Medication Instructions Recorded Last Taken Type amLODIPine 5 mg PO DAILY 30 Days #30 tablet 12/25/21 Unknown Rx MDD blood pressure Allergies Allergy/AdvReac Type Severity Reaction Status Date / Time No Known Allergies Allergy Verified 08/06/18 08:17 ED Review of Systems ROS: Stated complaint: HEADACHE/FATIGUE/VAGINAL DISCHARGE/HBP Other details as noted in HPI Comment: All other systems reviewed and negative ED Past Medical Hx - Past Medical History Previous Medical History?: Yes Hx Hypertension: Yes Additional medical history: uterine fibroids, hx blood transfusions - Surgical History Past Surgical History?: Yes Additional Surgical History: Tonsils - Family History Family history: no significant - Social History Smoking Status: Never Smoker Substance Use Type: None - Medications Home Medications: Home Medications Medication Instructions Recorded Confirmed Last Taken Type amLODIPine 5 mg PO DAILY 30 Days #30 tablet 12/25/21 Unknown Rx MDD blood pressure ED Physical Exam - General Limitations: No Limitations General appearance: alert, in no apparent distress - Head Head exam: Present: atraumatic, normocephalic - Eye Eye exam: Present: normal appearance - ENT ENT exam: Present: mucous membranes moist - Neck Neck exam: Present: normal inspection - Respiratory Respiratory exam: Present: normal lung sounds bilaterally. Absent: respiratory distress - Cardiovascular Cardiovascular Exam: Present: regular rate, normal rhythm. Absent: systolic murmur, diastolic murmur, rubs, gallop - GI/Abdominal GI/Abdominal exam: Present: soft, normal bowel sounds - Extremities Exam Extremities exam: Present: normal inspection - Back Exam Back exam: Present: normal inspection - Neurological Exam Neurological exam: Present: alert, oriented X3 - Psychiatric Psychiatric exam: Present: normal affect, normal mood - Skin Skin exam: Present: warm, dry, intact, normal color. Absent: rash ED Course Vital Signs 12/25/21 04:22 Temperature 97.1 F L Pulse Rate 88 Respiratory 16 Rate Blood Pressure 142/96 O2 Sat by Pulse 100 Oximetry ED Medical Decision Making - Medical Decision Making Lab Results 12/25/21 Range/Units Unknown Urine Color Yellow (Yellow) Urine Turbidity Clear (Clear) Specific [place] (Man) 1.030 (1.003-1.030) Ur Protein (Man) 1+ (Negative) mg/dL Ur Ketones (Man) 5 (Negative) Ur Nitrite (Man) Negative (Negative) Ur Reducing Substances Not Reportable Urine Bilirubin (Man) Negative (Negative) Urine Ictotest Not Reportable Leukocyte Esterase (Man) Negative (Negative) Urine WBC (Auto) 1.0 (0.0-6.0) /HPF Urine RBC (Auto) 1.0 (0.0-6.0) /HPF U Epithel Cells (Auto) 5.0 (0-13.0) /HPF Urine RBC (Manual) Negative (Negative) Urine Mucus 2+ /HPF Vital Signs 12/25/21 04:22 Temperature 97.1 F L Pulse Rate 88 Respiratory 16 Rate Blood Pressure 142/96 O2 Sat by Pulse 100 Oximetry UA NOTED DC HOME WITH DC PLAN OF CARE INCLUDING DIET, MEDS, ACTIIVTY AND FOLLOW UP SHE VERBALIZES UNDERSTANDING OF PLAN OF CARE. - Differential Diagnosis RO UTI/HTN Critical care attestation.: If time is entered above; I have spent that time in minutes in the direct care of this critically ill patient, excluding procedure time. ED Disposition Clinical Impression: Hypertension, Medication refill Disposition: HOME / SELF CARE / HOMELESS Is pt being admited?: No Does the pt Need Aspirin: No Condition: Stable Instructions: Hypertension, Adult, [id number], Hypertension (ED) Additional Instructions: follow up with pcp referral below Prescriptions: amLODIPine 5 mg PO DAILY 30 Days #30 tablet MDD blood pressure Referrals: CHRISTINE FINELY MD [Staff Physician] - 3-5 Days Forms: Work/School Release Form(ED) Time of Disposition: 09:52
== END 2021-12-25 10:11 | disposition home or self-care (01) ==
LOC: ED 03:58
DX: I10 Essential (primary) hypertension (principal); Z76.0 Encounter for issue of repeat prescription
CPT/HCPCS: 81001; 99283